=== PATIENT | female | born 1950 | race Caucasian/White ===

== ENCOUNTER 2019-01-22 02:11 | Emergency (ER) | payer OTHER ==
[~2019-01-22] VITALS: Ht 160 cm; Wt 104.3 kg
[~2019-01-22 02:11] MED LIST: ATACAND HCT 31 UDTA1 PO; ATACAND32 MG PO; AVANDAMET 1 MG/1 TAB PO; GLYBURIDE MICRON3 MG PO; GLYBURIDE MICRON6 MG PO; KOMBIGLYZE XR1 EAC2 PO; NABUMETONE500 MG PO; PERCOCET 5/3251 TAB PO; [UNRECOGNIZED DRUG - OTHER] PO; [UNRECOGNIZED DRUG - OTHER] PO
== END 2019-01-22 10:25 | disposition home or self-care (01) ==
LOC: ER 02:11
DX: R10.32 Left lower quadrant pain (principal); R10.31 Right lower quadrant pain

== ENCOUNTER 2023-02-24 11:01 | Emergency (ER) | payer OTHER ==
[~2023-02-24] VITALS: Ht 236.2 cm; Wt 97.5 kg
[2023-02-24] MEDS ORDERED: JANUMET XR 50-1 EAC1 PO (11:29)
[2023-02-24 12:58] LABS: HEMATOCRIT 36.9 % (36.0-45.00); HEMOGLOBIN 12.4 g/dL (12.0-15.00); MEAN CELL VOLUME 78.1 fL (80.00-100.00); MEAN CORPUSCULAR HEMOGLOBIN 26.2 pg (27.00-32.0); MEAN CORPUSCULAR HGB CONC 33.5 g/dl (32.0-36.0); PLATELET COUNT 326 K/uL (150-450); RED BLOOD COUNT 4.73 M/uL (4.00-6.00); RED CELL DISTRIBUTION WIDTH 15.5 % (11.5-14.5)
[2023-02-24 14:17] LABS: CALCIUM 9.4 mg/dL (8.5-10.1); CREATININE SERUM 1.28 mg/dL (0.55-1.02); GFR 41.22; POTASSIUM 3.85 mEq/L (3.5-5.1)
[2023-02-24 14:25] LABS: URINE APPEARANCE Clear; URINE BILIRRUBIN Negative (NEGATIVE); URINE BLOOD Negative; URINE COLOR Dark Yellow; URINE GLUCOSE Negative (NEGATIVE); URINE LEUKOCYTE Negative; URINE NITRATE Negative; URINE PROTEIN Negative (NEGATIVE); URINE UROBILINOGEN 0.2 E.U./dl
[2023-02-24 14:27] LABS: URINE BACTERIA 128.4 uL (0.0-1933); URINE EPITHELIAL CELLS 3.5 uL (0.0-38.8); URINE WBC 2.9 uL (0.0-23.2)
[2023-02-24 14:32] LABS: URINE RBC 0.8 uL (0.0-20.8)
== END 2023-02-24 16:46 | disposition home or self-care (01) ==
LOC: ER 11:01
PROVIDERS: General Practice
DX: B34.9 Viral infection, unspecified (principal); Z20.822 Contact with and (suspected) exposure to COVID-19; Z91.018 Allergy to other foods; Z91.013 Allergy to seafood

== ENCOUNTER 2023-12-01 09:22 | Outpatient (CLI) | payer OTHER ==
[~2023-12-01 09:22] MED LIST changes: +FARYDAK10 MG PO; +JANUMET 50-1,01 EACH PO; +JANUMET XR 50-1 EAC1 PO
== END 2023-12-01 09:29 | disposition home or self-care (01) ==
LOC: RAD 09:22
PROVIDERS: ATTEND Orthopaedic Surgery
DX: M25.561 Pain in right knee (principal); M25.562 Pain in left knee